=== PATIENT | female | born 1970 | race Caucasian/White ===

== ENCOUNTER → 2018-06-18 | Outpatient (CLI) | payer BC | LOC: MC.RAD 10:12 | DX: Z12.31 Encounter for screening mammogram for malignant neoplasm of breast (principal) ==

== ENCOUNTER 2018-09-03 08:18 | Outpatient (RCR) | payer OTHER | END 2018-10-21 | disposition home or self-care (01) | LOC: WSOH | DX: S82.65XA Nondisplaced fracture of lateral malleolus of left fibula, initial encounter for closed fracture (principal); S76.011A Strain of muscle, fascia and tendon of right hip, initial encounter; W01.0XXA Fall on same level from slipping, tripping and stumbling without subsequent striking against object, initial encounter; Y93.01 Activity, walking, marching and hiking; Y92.214 College as the place of occurrence of the external cause; Y99.0 Civilian activity done for income or pay; Z79.899 Other long term (current) drug therapy | CPT/HCPCS: 24091; 24774; A6549; L1810 ==

== ENCOUNTER → 2019-10-27 | Outpatient (CLI) | payer BC | LOC: COL.LAB 15:25 | DX: J32.9 Chronic sinusitis, unspecified (principal); K58.9 Irritable bowel syndrome, unspecified; F90.9 Attention-deficit hyperactivity disorder, unspecified type; R53.81 Other malaise; G47.00 Insomnia, unspecified ==

== ENCOUNTER → 2021-07-26 | Outpatient (CLI) | payer BC | LOC: MC.RAD 12:46 | DX: Z12.31 Encounter for screening mammogram for malignant neoplasm of breast (principal) ==

== ENCOUNTER → 2021-08-22 | Outpatient (CLI) | payer BC | LOC: COL.RAD 08-18 13:00 | DX: Z00.00 Encounter for general adult medical examination without abnormal findings (principal); M41.84 Other forms of scoliosis, thoracic region; K80.20 Calculus of gallbladder without cholecystitis without obstruction ==